=== PATIENT | female | born 1960 | race Caucasian/White ===

== ENCOUNTER → 2017-04-02 | Outpatient (CLI) | payer OTHER ==
[~2017-04-02] MED LIST: ALLEGRA PO; AMOXICILLIN PO; ASMANEX0.24 G3 IH; AUGMENTIN PO; FLONASE16 GM; HAIR, SKIN & N1 EAC1 PO; MULTI VITAMIN1 EACH PO; PROAIR HFA8.5 GM; PROAIR HFA8.5 GM INH; VITAMIN B12-FO1 EACH PO; ZYRTEC; ZYRTEC PO
--- NOTE | ~2017-04-02 | MY11 ---
[facility] A Service [facility] RADIOLOGY TEXT RESULTS PATIENT: EDITA CABRERA LOCATION: [facility] : 56 UNIT #: [id number] AGE: [address]: Brenton Whalen MD SEX: F ORDER DR: [id number] [facility] [address] [place], [place] [address] [id number] O MR#: [id number] Acc #: [id number] NAME: EDITA CABRERA : 1960 SEX: F STUDY DATE/TIME: 04/02/2017 16:08 UNIT: [facility] ROOM: STUDY DESCRIPTION: MY Mammogram Screening Dig Leo Attending Physician: Brenton Whalen M.D. Ordering Physician: Brenton Whalen M.D. Primary Care Physician: Brenton Whalen M.D. MEDICAL IMAGING REPORT This report is preliminary unless electronic signature is present EXAM Digital screening mammogram, 04/02/2017 HISTORY 56-year-old woman no risk elevation. Annual screening. COMPARISON 07/06/2009, 05/22/2010 FINDINGS Digital imaging of each breast was completed utilizing a two-view examination of each breast in craniocaudal and mediolateral-oblique projections. Review and interpretation of digital mammograms include a second review in conjunction with FDA-approved CAD device. There is a normal parenchymal presentation bilaterally consistent with the patient's age. There are no breast masses imaged and no parenchymal asymmetry is visualized. There are no suspicious microcalcifications and I see no focal architectural disturbance. IMPRESSION Negative screening digital mammogram. One-year followup recommended. Patients over the age of 40 are entered into a reminder system with target due date for the next mammogram. A result letter will also be sent to the patient. BIRADS: 1 Negative ADDENDUM Breast parenchyma is predominately fatty replaced. Dictated by... Micha Hernandez M.D. [facility] A Service [facility] RADIOLOGY TEXT RESULTS PATIENT: EDITA CABRERA LOCATION: [facility] : 56 UNIT #: [id number] AGE: [address]: Brenton Whalen MD SEX: F ORDER DR: THIS IS AN ELECTRONICALLY VERIFIED REPORT Micha Hernandez M.D. at 04/03/2017 10:10 AM Delores TD: 04/03/2017 09:33 JOB #: [id number] MEDICAL IMAGING REPORT Page 1 of 1 COPY
== END | disposition home or self-care (01) ==
LOC: CWCC 15:44
DX: Z12.31 Encounter for screening mammogram for malignant neoplasm of breast (principal); R92.8 Other abnormal and inconclusive findings on diagnostic imaging of breast
CPT/HCPCS: G0202